=== PATIENT | female | born 1940 | race Caucasian/White ===

== ENCOUNTER 2018-01-16 08:11 | Day surgery (SDC) | payer MEDICARE, OTHER ==
[2018-01-16] MEDS ORDERED: TETRACAINE HCL 0.5% 15 ML OPTH BTL OPTH ONE (08:12)
[2018-01-16] MEDS ORDERED: PROPOFOL 10 MG/ML VIAL IV ONE (08:12)
[2018-01-16] MEDS ORDERED: NEOMYCIN/POLY./DEXAM OPTH OINT OPTH ONE (08:12)
[2018-01-16] MEDS ORDERED: LIDOCAINE 2% MDV (20MG/ML) 20ML VIAL IV ONE ×2 (08:12)
[2018-01-16] MEDS ORDERED: CIPROFLOXACIN HCL 0.0015 GM, PHENYLEPHRINE HCL 0.05 GM, KETOROLAC TROMETHAMINE 0.000625 GM MC ONE ×5 (15:30)
--- NOTE | 2018-01-18 14:05 | Operative Note ---
DATE OF PROCEDURE: 01/16/18. PREOPERATIVE DIAGNOSIS: Nuclear sclerotic cataract, left eye. POSTOPERATIVE DIAGNOSIS: Nuclear sclerotic cataract, left eye. OPERATION: Phacoemulsification of cataractous lens with implantation of intraocular lens. LENS IMPLANT USED: Estrada Model PCB00 + 21.5 diopters. COMPLICATIONS: None. PROCEDURE IN DETAIL: Following a retrobulbar and facial block, the patient was prepped and draped in the usual fashion for eye surgery. A lid speculum was placed in the left eye after which a 2.4 mm tunnel wound was placed at the temporal limbus and dissected into clear cornea. A paracentesis was placed at 2 o'clock hours to the left and right of the initial incision and the chamber deepened with Viscoelastic. The keratome was then used to enter the anterior chamber after which the continuous circular capsulorrhexis was accomplished without difficulty using a bent needle and a Utrata forceps. Hydrodissection and hydrodelineation of the lens was performed after which the nucleus of the lens was removed using the Phaco handpiece in the hryppe-cva-siggjte technique. The residual cortical material was irrigated and aspirated from the eye after which the bag and chamber were re-examined. The bag was re-inflated with Viscoelastic and the intraocular lens injected into the capsular bag where it centered well. The Viscoelastic was then copiously irrigated and aspirated from the eye after which the temporal tunnel wound and paracentesis were hydrated and the wounds were examined. They were noted to be watertight. The lid speculum was removed from the eye and the eye patched and shielded. The patient was transferred to the recovery room in satisfactory condition and given an appointment to be reexamined in the clinic later today or as directed by Dr. Ruffin. JOB NUMBER: [id number] [facility]
== END 2018-01-16 10:30 | disposition home or self-care (01) ==
LOC: SUR 08:11
PROVIDERS: ATTEND Ophthalmology
DX: H25.12 Age-related nuclear cataract, left eye (principal); I10 Essential (primary) hypertension; E11.9 Type 2 diabetes mellitus without complications; E78.00 Pure hypercholesterolemia, unspecified; Z79.01 Long term (current) use of anticoagulants; Z79.4 Long term (current) use of insulin; G47.33 Obstructive sleep apnea (adult) (pediatric)

== ENCOUNTER 2018-02-06 07:09 | Day surgery (SDC) | payer MEDICARE, OTHER ==
[2018-02-06] MEDS ORDERED: NEOMYCIN/POLY./DEXAM OPTH OINT OPTH ONE (07:10)
[2018-02-06] MEDS ORDERED: LIDOCAINE 2% MDV (20MG/ML) 20ML VIAL IV ONE (07:10)
[2018-02-06] MEDS ORDERED: **ER** KETAMINE HCL 500MG/10ML VIAL IV ONE (07:10)
[2018-02-06] MEDS ORDERED: TETRACAINE HCL 0.5% 15 ML OPTH BTL OPTH ONE (07:10)
[2018-02-06] MEDS ORDERED: EPINEPHRINE 1 MG/ML AMPUL SQ ONE (07:10)
[2018-02-06] MEDS ORDERED: MIDAZOLAM HCL 2MG/2ML VIAL IV ONE (07:10)
[2018-02-06] MEDS ORDERED: CIPROFLOXACIN HCL 0.0015 GM, PHENYLEPHRINE HCL 0.05 GM, KETOROLAC TROMETHAMINE 0.000625 GM MC ONE ×5 (11:15)
--- NOTE | 2018-04-18 04:53 | OP NOTE CHAMES ---
DATE OF PROCEDURE: 02/06/2018. PREOPERATIVE DIAGNOSIS: Nuclear sclerotic cataract, right eye. POSTOPERATIVE DIAGNOSIS: Nuclear sclerotic cataract, right eye. OPERATION: Phacoemulsification of cataractous lens with implantation of intraocular lens. LENS IMPLANT USED: Estrada Model PCB00 + 21.5 diopters. COMPLICATIONS: None. PROCEDURE IN DETAIL: Following a retrobulbar and facial block, the patient was prepped and draped in the usual fashion for eye surgery. A lid speculum was placed in the right eye after which a 2.4 mm tunnel wound was placed at the temporal limbus and dissected into clear cornea. A paracentesis was placed at 2 oclock hours to the left and right of the initial incision and the chamber deepened with Viscoelastic. The keratome was then used to enter the anterior chamber after which the continuous circular capsulorrhexis was accomplished without difficulty using a bent needle and a Utrata forceps. Hydrodissection and hydrodelineation of the lens was performed after which the nucleus of the lens was removed using the Phaco handpiece in the [id number]-[id number]-[id number] technique. The residual cortical material was irrigated and aspirated from the eye after which the bag and chamber were re-examined. The bag was re-inflated with Viscoelastic and the intraocular lens injected into the capsular bag where it centered well. The Viscoelastic was then copiously irrigated and aspirated from the eye after which the temporal tunnel wound and paracentesis were hydrated and the wounds were examined. They were noted to be watertight. The lid speculum was removed from the eye and the eye patched and shielded. The patient was transferred to the recovery room in satisfactory condition and given an appointment to be reexamined in the clinic later today or as directed by Dr. Ruffin. JOB NUMBER: [id number] [facility]
== END 2018-02-06 09:07 | disposition home or self-care (01) ==
LOC: SUR 07:09
PROVIDERS: ATTEND Ophthalmology
DX: H25.11 Age-related nuclear cataract, right eye (principal); S05.01XA Injury of conjunctiva and corneal abrasion without foreign body, right eye, initial encounter; I69.344 Monoplegia of lower limb following cerebral infarction affecting left non-dominant side; E11.9 Type 2 diabetes mellitus without complications; I10 Essential (primary) hypertension; E78.00 Pure hypercholesterolemia, unspecified; Z79.01 Long term (current) use of anticoagulants; Z87.891 Personal history of nicotine dependence
CPT/HCPCS: 36416; 82948; 99282; J0171

== ENCOUNTER 2018-02-06 20:21 | Emergency (ER) | payer MEDICARE, OTHER ==
[2018-02-06] MEDS ORDERED: ACETAMINOPHEN 500 MG TABLET PO ONE (20:28)
--- NOTE | 2018-02-06 20:28 | Emergency Department Record ---
History of Present Illness - General Chief complaint: Eye Problem Stated complaint: EYE PAIN Time Seen by Provider: 02/06/18 20:22 Source: Patient Mode of Arrival: Ambulatory Limitations: No limitations - History of Present Illness Initial comments: 77 yo female presents with eye pain after cataract surgery today. She states the surgery went well. The last several hours she began to notice pain in the right surgical eye when whens the left normal eye. No bleeding. No headache. No nausea or vomiting. The left normal eye is non painful. MD chief complaint: Eye pain -: Hour(s) (5) Onset Description: Gradual Location: Right eye Place: Home If Injury: Other (Surgery today) Eye Symptoms: Other (Sharp) Severity: Moderate If Pain, Quality: Sharp Consistency: Constant Associated Symptoms: None Treatments Prior to Arrival: Eyepatch - Related Data Allergies Allergy/AdvReac Type Severity Reaction Status Date / Time No Known Drug Intolerances Allergy Unknown Unverified 08/31/13 10:11 Review of Systems Constitutional: Denies: Chills, Fever, Malaise Eyes: Reports: Eye pain, Photophobia. Denies: Eye discharge, Vision change ENT: Denies: Congestion, Throat pain Respiratory: Denies: Cough Cardiovascular: Denies: Chest pain, Syncope Endocrine: Denies: Fatigue Gastrointestinal: Denies: Abdominal pain, Diarrhea, Nausea, Vomiting Genitourinary: Denies: Dysuria Musculoskeletal: Denies: Arthralgia, Myalgia Skin: Denies: Bruising, Change in color, Rash Neurological: Denies: Headache Psychiatric: Denies: Anxiety Hematological/Lymphatic: Denies: Easy bleeding, Easy bruising Past Medical History - SOCIAL HISTORY Smoking Status: Former smoker - RESPIRATORY Hx Respiratory Disorders: No - CARDIOVASCULAR Hx Cardio Disorders: Yes Hx Edema: Yes (left leg "since I had a stroke") Hx Hypertension: Yes - NEURO Hx Neuro Disorders: Yes 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) Hx UTI: Yes ("quite awhile ago") - ENDOCRINE Hx Endocrine Disorders: Yes Hx Diabetes: Yes Comment:: last accu 135/ - MUSCULOSKELETAL Hx Musculoskeletal Disorders: Yes Hx Arthritis: Yes (hands) - PSYCH Hx Psych Problems: Yes Hx Anxiety: Yes Hx Depression: Yes - HEMATOLOGY/ONCOLOGY Hx Hematology/Oncology Disorders: Yes Hx Bruising: (on blood thinner) Family Medical History Hx Dementia: Mother Hx Diabetes: Brother/Sister Hx Heart Disease: Brother/Sister Hx HTN: Brother/Sister Physical Exam - General General Appearance: Alert, Oriented x3, Cooperative, No acute distress Limitations: No limitations - Head Head exam: Atraumatic, Normal inspection - Eye Eye exam: Normal appearance, PERRL, EOMI, Other (Clear right AC, no hyphema, no injection, normal inspection of the surgical right eye). negative: Conjunctival injection, Periorbital swelling, Periorbital tenderness - ENT ENT exam: Normal exam Ear exam: Normal external inspection Nasal Exam: Normal inspection Mouth exam: Normal external inspection - Neck Neck exam: Normal inspection - Respiratory Respiratory exam: Normal lung sounds bilaterally. negative: Respiratory distress - Cardiovascular Cardiovascular Exam: Regular rate, Normal rhythm, Normal heart sounds - Neurological Neurological exam: Alert, Oriented X3 - Psychiatric Psychiatric exam: negative: Agitated, Anxious - Skin Skin exam: Dry, Intact, Normal color, Warm Course - Reevaluation(s) Reevaluation #1: Both eyes were examined No injection or bleeding. The AC of each eye appears clear. No visible hyphema. No lid swelling. She denies pain in the left eye. She states the pain in the right eye prohibits her from opening the left eye. 02/06/18 20:27 Dr Ruffin paged. 02/06/18 20:32 We discussed the presentation and examination. The patient did have an abrasion and told she would have some pain. 02/06/18 20:46 I placed one drop of alcaine and she had instant complete relief She was able to open both eyes with out pain and without changes in vision The erythromycin ointment was placed as well A soft patch per Dr Ruffin instructions was placed We discussed home care and reasons to return/close follow up Disposition Disposition: Discharge Clinical Impression: Corneal abrasion, right Disposition: Home, Self-Care Condition: (1) Good Instructions: Corneal Abrasion (ED), Cataracts (ED) Additional Instructions: Keep the patch on tonight Call Dr Ruffin tomorrow for follow up and report on your symptoms Return or be seen if any concerns sleep tonight avoiding eye movement that could aggravate the scratch on the eye Forms: Patient Portal Access Time of Disposition: 20:49 Quality - Quality Measures Quality Measures: N/A - Blood Pressure Screening Does Patient Have Any of the Following: No Blood Pressure Classification: Pre-Hypertensive BP Reading Systolic Measurement: 136 Diastolic Measurement: 83 Screening for High Blood Pressure: < Pre-Hypertensive BP, F/U Documented > [ [id number]] Pre-Hypertensive Follow-up Interventions: Referral to alternative/primary care provider.
[2018-02-06] MEDS ORDERED: ERYTHROMYCIN OPTH OINT 3.5GM OPTH ONE (20:34)
[2018-02-06] MEDS ORDERED: PROPARACAINE HCL OPTH 15ML BTL OPTH ONE (20:35)
== END 2018-02-06 21:01 | disposition home or self-care (01) ==
LOC: ER 20:21
DX: S05.01XA Injury of conjunctiva and corneal abrasion without foreign body, right eye, initial encounter (principal); E11.9 Type 2 diabetes mellitus without complications; I69.344 Monoplegia of lower limb following cerebral infarction affecting left non-dominant side; Z79.01 Long term (current) use of anticoagulants; Z87.891 Personal history of nicotine dependence